=== PATIENT | male | born 1980 | race Caucasian/White ===

== ENCOUNTER 2023-05-02 12:11 | Emergency (ER) | payer BC, OTHER ==
[~2023-05-02] VITALS: Ht 167.6 cm; Wt 74.8 kg
[~2023-05-02 12:11] MED LIST: CLON0.1T14 PO; GABA-534 PO; HYDR-3895 PO; METH-406 PO; ROPI1TAB2 PO
[2023-05-02 12:23] VITALS: O2SAT 98
--- NOTE | 2023-05-02 12:25 | NUR ---
Patient seen by physician.
[2023-05-02] MEDS ORDERED: BUPRENORPHINE HCL 2 MG TAB.SUBL SL ONE ×2 (12:45→12:48)
[2023-05-02] MEDS ORDERED: BUPR1FIL3 SL (13:29)
--- NOTE | 2023-05-02 13:54 | NUR ---
Patient awaiting to be seen by chore worker before discharge home. chore worker was notified by .
--- NOTE | 2023-05-02 14:02 | NUR ---
138/77, HR 79, sturation 100% Ra. AAOx4. no c/o pain or any other discomfort.
--- NOTE | 2023-05-02 14:39 | NUR ---
DCD instructions and prescriptions given to pt. Pt. left AAOx4. steady gait. No c/of of any discomfort.
--- NOTE | 2023-05-03 08:21 | NUR ---
Clinical SW Note: SW was consulted by ED in regard to patient being in need of resources for MAT treatment programs. on 05/02 @ 2:10pm, SW confirmed patients D.O.B and address. Patient is a 42M that presented cooperative, congruent affect, and was A&Ox4. Patient stated to this SW that he is currently employed, independent, and is able to drive. The patient stated he is able to perform activities of daily living, without any concerns, and denied using any DME; with mentioning he walks 9 miles a day. SW noted no toxicology report was completed. Patient stated he has a Hx of substance abuse (Opioids) and has been sober for over 2 years. SW provided resources for MAT treatment programs from [facility], [facility], [facility], [facility], and [facility] Patient denied having Hx of psychiatric diagnosis. Patient denied suicidal and homicidal ideation. Patient stated his plan for discharge is to go home after he picks up his daughter from school.
== END 2023-05-02 14:40 | disposition home or self-care (01) ==
LOC: ER 12:11
DX: F11.23 Opioid dependence with withdrawal (principal); Z76.0 Encounter for issue of repeat prescription; Z79.899 Other long term (current) drug therapy
CPT/HCPCS: A4663